=== PATIENT | male | born 1945 | race Caucasian/White ===

== ENCOUNTER 2023-02-02 19:07 | Outpatient (CLI) | payer MEDICARE, BC ==
[~2023-02-02 19:07] MED LIST: ATOR20TA PO; FENO43CA8 PO; GABA600T PO; HYDR1TAB10 PO; TRAM50TA2 PO
[2023-02-02 19:25] LABS: CLARITY,URINE TURBID (Clear); COLOR,URINE YELLOW (Yellow); GLUCOSE, URINE NEGATIVE (Neg); KETONES,URINE NEGATIVE (Neg); LEUKOCYTE ESTERASE ,URINE MODERATE (Neg); NITRITES, URINE POSITIVE (Neg); OCCULT BLOOD,URINE LARGE (Neg); PROTEIN,URINE 30 mg/dl (Neg); UROBILINOGEN,URINE 0.2 E.U/dL (0.2-1.0)
[2023-02-02 19:29] LABS: UA COLLECTION TYPE NON-SPECIFIED
[2023-02-02 19:33] LABS: FINE GRANULAR CAST 0-3 /LPF (NEGATIVE); SQUAMOUS EPITHELIAL CELL,UR NONE SEEN /LPF (FEW)
[2023-02-02 19:34] LABS: BACTERIA,URINE 2+ /HPF (Neg); RBC,URINE TNTC /HPF (0-2); WBC,URINE TNTC /HPF (0-4)
[2023-02-02 19:35] LABS: CAL OXALATE CRYSTALS 4+ /HPF (NEGATIVE)
== END 2023-02-02 23:59 | disposition home or self-care (01) ==
LOC: LAB SPEC 19:07
PROVIDERS: ATTEND Dietitian, Registered
DX: I26.99 Other pulmonary embolism without acute cor pulmonale (principal); N31.9 Neuromuscular dysfunction of bladder, unspecified; N13.8 Other obstructive and reflux uropathy; G82.50 Quadriplegia, unspecified; N52.9 Male erectile dysfunction, unspecified
CPT/HCPCS: 81001; 87077; 87088; 87186

== ENCOUNTER 2023-06-12 19:57 | Outpatient (CLI) | payer MEDICARE, BC ==
[2023-06-12 20:34] LABS: BASOPHILS % (AUTO) 0.9 % (0-1); EOSINOPHILS # (AUTO) 0.2 X10'3 (0-0.9); EOSINOPHILS % (AUTO) 3.2 % (0-6); HEMATOCRIT 37.2 % (42.0-52.0); HEMOGLOBIN 11.9 g/dl (14.0-17.9); LYMPHOCYTES # (AUTO) 1.2 X10'3 (1.1-4.8); LYMPHOCYTES % (AUTO) 22.8 % (21-51); MEAN CORPUSCULAR HEMOGLOBIN 25.9 PG (27.0-31.0); MEAN CORPUSCULAR HGB CONC 32.1 g/dL (33.0-36.5); MEAN CORPUSCULAR VOLUME 80.7 FL (78-98); MEAN PLATELET VOLUME 8.5 FL (7.4-10.4); MONOCYTES # (AUTO) 0.5 X10'3 (0-0.9); MONOCYTES % (AUTO) 8.9 % (2-12); NEUTROPHILS # (AUTO) 3.3 X10'3 (1.8-7.7); NEUTROPHILS % (AUTO) 64.2 % (42-75); PLATELET COUNT 310 X10'3 (140-440); RED BLOOD COUNT 4.62 X10'6 (4.70-6.10); RED CELL DISTRIBUTION WIDTH 18.5 % (11.5-14.5); WHITE BLOOD COUNT 5.1 X10'3 (4.5-11.0)
[2023-06-12 21:10] LABS: ALANINE AMINOTRANSFERASE 15 U/L (12-78); ALBUMIN 2.8 G/DL (3.4-5.0); ALBUMIN/GLOBULIN RATIO 0.9 (1.1-1.5); ALKALINE PHOSPHATASE 76 IU/L (46-116); ANION GAP 6 (8-16); ASPARTATE AMINO TRANSFERASE 21 U/L (10-37); BILIRUBIN,TOTAL 0.3 MG/DL (0.1-1.0); BLOOD UREA NITROGEN 15 MG/DL (7-18); BUN/CREATININE RATIO 27.8 (10.0-20.0); C-REACTIVE PROTEIN 1.63 MG/DL (0.0-0.5); CALCIUM 9.2 MG/DL (8.5-10.1); CHLORIDE 103 MMOL/L (99-107); CREATININE 0.54 MG/DL (0.60-1.10); GLUCOSE 59 MG/DL (70-104); SODIUM 137 MMOL/L (135-145); TOTAL CARBON DIOXIDE 27.6 MMOL/L (24-32); eGFR > 90 ML/MIN
== END 2023-06-12 23:59 | disposition home or self-care (01) ==
LOC: LAB SPEC 19:57
PROVIDERS: ATTEND Dietitian, Registered
DX: S81.801D Unspecified open wound, right lower leg, subsequent encounter (principal); L89.324 Pressure ulcer of left buttock, stage 4; E78.2 Mixed hyperlipidemia; I48.91 Unspecified atrial fibrillation; F41.9 Anxiety disorder, unspecified; I10 Essential (primary) hypertension; Z79.01 Long term (current) use of anticoagulants; Z87.440 Personal history of urinary (tract) infections
CPT/HCPCS: 80053; 85025; 86140

== ENCOUNTER 2023-12-04 17:40 | Outpatient (CLI) | payer MEDICARE, BC ==
[2023-12-04 18:46] LABS: ALBUMIN 2.7 G/DL (3.4-5.0); C-REACTIVE PROTEIN 4.43 MG/DL (0.0-0.5); PREALBUMIN 17.3 MG/DL (19-36)
== END 2023-12-04 23:59 | disposition home or self-care (01) ==
LOC: LAB SPEC 17:40
PROVIDERS: ATTEND Emergency Medicine
DX: L89.624 Pressure ulcer of left heel, stage 4 (principal)
CPT/HCPCS: 36415; 82040; 84134; 85651; 86140